=== PATIENT | female | born 1950 | race Caucasian/White ===

== ENCOUNTER 2016-12-07 19:21 | Emergency (ER) | payer MEDICAID ==
[2016-12-07] MEDS ORDERED: BUFFERED LIDOCAINE 10 ML SYRINGE SUBQ STA (20:11)
[2016-12-07] MEDS ORDERED: BUFFERED LIDOCAINE 10 ML SYRINGE ONE (20:18)
--- NOTE | 2016-12-07 20:27 | ED Physician Documentation ---
History of Present Illness - Stated complaint Stated Complaint: RT FOOT LAC - Chief complaint Chief Complaint: Laceration - Additonal information Additional information: Patient is a pleasant healthy 66-year-old woman who presents with a complaint of a bleeding laceration to the dorsum of her right foot. She was painting her house when she accidentally kicked a small sculpture and sustained a laceration. There is a moderate amount of bleeding as she grew concerned and came in for evaluation. She is walking on it her tetanus is up-to-date. She has no complaints of injury the pain is worse with movement and better with rest. Review of systems: For pertinent positive and negatives in the review of systems please see the history of present illness, otherwise all other systems have been reviewed and are negative. Dragon disclaimer: Parts of this medical record were created using voice recognition technology. Because of the inherent limitations of this system, occasional same sounding word substitutions do occur and persist despite proofreading. Please read the document for context. Review of Systems Skin: reports: Lesions, Laceration (s) PD PAST MEDICAL HISTORY - Past Medical History Cardiovascular: Hypertension Respiratory: None Neuro: None GI: None TWINE WINDER: None HEENT: None Psych: None Musculoskeletal: None - Past Surgical History Past Surgical History: Yes General: Cholecystectomy /TWINE WINDER: Hysterectomy HEENT: Tonsil/Adenoidectomy - Present Medications Home Medications: Ambulatory Orders Medication Instructions Recorded Confirmed No Known Home Medications [No 12/07/16 12/07/16 Known Home Medications] - Allergies Allergies/Adverse Reactions: Allergies Allergy/AdvReac Type Severity Reaction Status Date / Time No Known Drug Allergies Allergy Verified 12/07/16 19:25 - Social History Does the pt smoke?: Yes Smoking Status: Current every day smoker Does the pt drink ETOH?: No Does the pt have substance abuse?: No - Immunizations Immunizations are current?: No PD ED PE NORMAL - Vitals Vital signs reviewed: Yes - General General: Alert and oriented X 3, No acute distress (0.3 cm laceration dorsum of the right foot. No bony tenderness noted) Results - Vitals Vitals: Vital Signs - 24 hr 12/07/16 19:26 Temperature 36.3 C L Heart Rate 72 Respiratory 16 Rate Blood Pressure 193/88 H O2 Saturation 97 Oxygen O2 Source Room air PD MEDICAL DECISION MAKING - ED course Complexity details: reviewed old records ED course: Pleasant woman for small laceration to the dorsum of her right foot is 0.3 cm in length. The wound was cleansed with chlorhexidine and saline, inspected, anesthetized with bupivacaine and closed using 2 single interrupted sutures of 4 oh Ethicon. His good hemostasis and approximation she is discharged home at this time. Disposition: To home Clinical impression: 0.3 cm laceration dorsum right foot suture closure Departure - Departure Disposition: 01 Home, Self Care Clinical Impression: Laceration Condition: Good Instructions: ED Laceration Foot Follow-Up: your,physician [Other] Comments: Sutures out in 7 days
[2016-12-07 20:42] VITALS: BP 194/84
== END 2016-12-07 20:46 | disposition home or self-care (01) ==
LOC: ED 19:21
DX: S91.311A Laceration without foreign body, right foot, initial encounter (principal); W26.8XXA Contact with other sharp object(s), not elsewhere classified, initial encounter; Y92.017 Garden or yard in single-family (private) house as the place of occurrence of the external cause; I10 Essential (primary) hypertension; F17.200 Nicotine dependence, unspecified, uncomplicated
CPT/HCPCS: 12001; 99283

== ENCOUNTER 2022-12-31 13:13 | Outpatient (CLI) | payer MEDICARE, MEDICAID ==
--- NOTE | 2022-12-31 21:46 | Ultrasound Report ---
PROCEDURE: Duplex Lwr Ext Arterial Bilat INDICATIONS: CLAUDICATION TECHNIQUE: Color and pulse Doppler interrogation was performed of both lower extremity arterial systems, with im age documentation. COMPARISON: None FINDINGS: Right lower extremity: Common femoral artery: 169 cm/sec, with biphasic flow. Deep femoral artery: 187 cm/sec, with biphasic flow. Proximal superficial femoral artery: 115 cm/sec, with biphasic flow. Mid superficial femoral artery: 109 cm/sec, with biphasic flow. Distal superficial femoral artery: cm/sec, with biphasic flow. Popliteal artery: 74 cm/sec, with biphasic flow. Posterior tibial artery: 46 cm/sec, with biphasic flow. Anterior tibial artery/dorsalis pedis: 49 cm/sec, with biphasic flow. Henry-scale imaging description: Minimal atherosclerotic plaque Left lower extremity: Common femoral artery: 131 cm/sec, with biphasic flow. Deep femoral artery: 92 cm/sec, with biphasic flow. Proximal superficial femoral artery: 110 cm/sec, with biphasic flow. Mid superficial femoral artery: 109 cm/sec, with biphasic flow. Distal superficial femoral artery: 56 cm/sec, with biphasic flow. Popliteal artery: 129 cm/sec, with biphasic flow. Posterior tibial artery: 42 cm/sec, with biphasic flow. Anterior tibial artery/dorsalis pedis: 49 cm/sec, with biphasic flow. Henry-scale imaging description: Mild left sclerotic plaque IMPRESSION: Mild bilateral atherosclerotic plaque associated with biphasic waveforms. No obstruction. Reviewed by: David Mejias MD on 12/31/2022 8:44 PM AKMICHAEL Approved by: David Mejias MD on 12/31/2022 8:44 PM AKDT Station ID: [id number]
== END 2022-12-31 13:14 | disposition home or self-care (01) ==
LOC: DI 13:13
PROVIDERS: ATTEND Family Medicine
DX: I70.203 Unspecified atherosclerosis of native arteries of extremities, bilateral legs (principal)
CPT/HCPCS: 93925

== ENCOUNTER 2023-06-07 12:46 | Outpatient (CLI) | payer MEDICARE, MEDICAID ==
--- NOTE | 2023-06-07 16:03 | DEXA Report ---
PROCEDURE: Dexa Spine and/or Hip INDICATIONS: POST MENOPAUSAL TECHNIQUE: Dual energy x-ray absorptiometry (DXA) was performed on a [employer] System. Regions measur ed are the AP Spine, femoral neck, and if needed forearm. COMPARISON: None FINDINGS: Lumbar Spine: Bone Mineral Density: 0.7180 g/cm/cm,T score: -3.8. Left Femoral Neck: Bone Mineral Density: 0.625 g/cm/cm, T score: -3. Left Hip: Bone Mineral Density: 0.627 g/cm/cm,T score: -3. (T score greater or equal to -1.0: NORMAL) (T score from -1.1 to -2.4: OSTEOPENIA) (T score less than or equal to -2.5 to: OSTEOPOROSIS) Impression: By WHO criteria, this patient has osteoporosis in the spine as well as hip and femoral neck. Patients with diagnosis of osteoporosis or osteopenia should have regular bone mineral density assess ment. For those eligible for Medicare, routine testing is allowed once every 2 years. Testing frequ ency can be increased for patients who have rapidly progressing disease or for those who are receivin g medical therapy to restore bone mass. Reviewed by: Chela Cantu MD on 06/07/2023 4:02 PM PST Approved by: Chela Cantu MD on 06/07/2023 4:02 PM PST Station ID: [id number]
== END 2023-06-07 12:47 | disposition home or self-care (01) ==
LOC: DI 12:46
PROVIDERS: ATTEND Family Medicine
DX: Z78.0 Asymptomatic menopausal state (principal); M81.0 Age-related osteoporosis without current pathological fracture